=== PATIENT | male | born 1990 | race African-American/Black ===

== ENCOUNTER 2018-02-25 11:00 | Emergency (ER) | payer MEDICAID ==
[~2018-02-25] VITALS: Ht 182.9 cm; Wt 83.6 kg
[2018-02-25 11:21] VITALS: Ht 182.9 cm; Wt 83.6 kg
[2018-02-25] MEDS ORDERED: VENTOLIN HFA18 GM INH (14:21)
[2018-02-25] MEDS ORDERED: PROMETHAZINE W473 ML PO (14:21)
[2018-02-25] MEDS ORDERED: DOXYCYCLINE HY100 M2 PO (14:21)
[2018-02-25 14:32] VITALS: BP 127/76
== END 2018-02-25 14:33 | disposition home or self-care (01) ==
LOC: D.ER 11:00
DX: J40 Bronchitis, not specified as acute or chronic (principal); R09.89 Other specified symptoms and signs involving the circulatory and respiratory systems; F17.200 Nicotine dependence, unspecified, uncomplicated